=== PATIENT | female | born 1955 | race Caucasian/White ===

== ENCOUNTER 2016-11-29 08:52 | Day surgery (SDC) | payer OTHER ==
[~2016-11-29] VITALS: Ht 165.1 cm; Wt 70.0 kg
[~2016-11-29 08:52] MED LIST: 0.9% Sodium Chloride 1,000 ML IV SCH; ASPI-973 PO; CHOL10008 PO; LISI-571 PO; METF500T4 PO; PRAV40TA PO; SLO64 PO; Sodium Chloride LOK Flush 10 mL Syringe IV PRN; fentaNYL-PF 50 mCg/mL 2 mL Inj IVPUSH PRN
[2016-11-29 09:23] VITALS: BP 123/76; PULSE 76; RESP 16; O2SAT 97
[2016-11-29 10:09] VITALS: BP 113/63; PULSE 65; RESP 14; O2SAT 97
[2016-11-29 10:20] VITALS: BP 100/58; PULSE 66; RESP 14; O2SAT 100
[2016-11-29 10:24] VITALS: BP 115/67; PULSE 68; RESP 14; O2SAT 96
--- NOTE | 2016-11-29 14:13 | ENDO ---
[address] [address] ENDOSCOPY PROCEDURE PATIENT: DANIKA YOUNG : 1955 MR#: [id number] ADMIT: 11/29/2016 JOB ID: [id number] DATE: 11/29/2016 PROCEDURE: Colonoscopy. PREOPERATIVE DIAGNOSIS(ES): Colorectal cancer screening. POSTOPERATIVE DIAGNOSIS(ES): Normal colonoscopy. ANESTHESIA: 1. Fentanyl 100 mcg. 2. Versed 5 mg IV administered. COMPLICATIONS: None. BLOOD LOSS: Minimal. DESCRIPTION OF PROCEDURE: After risks and benefits were explained to the patient, informed consent was obtained. After anesthesia administered, colonoscope was then inserted from the rectum to the cecum. Mucosa carefully examined. Prep of the patient was excellent. After procedure was done, the scope withdrawn and procedure terminated. FINDINGS: Upon inspection of the anus, no masses, hemorrhoids, ulcers, or fissures that were seen. Throughout the entire examination, there were no polyps, masses or lesions. Retroflexion was normal. IMPRESSION: Normal colonoscopy. RECOMMENDATION: Repeat colonoscopy 10 years for colorectal cancer screening.
== END 2016-11-29 23:59 | disposition home or self-care (01) ==
LOC: END 08:52
PROVIDERS: ATTEND Internal Medicine Gastroenterology
DX: Z12.11 Encounter for screening for malignant neoplasm of colon (principal); I10 Essential (primary) hypertension; E11.9 Type 2 diabetes mellitus without complications; Z79.82 Long term (current) use of aspirin; Z79.84 Long term (current) use of oral hypoglycemic drugs; Z87.891 Personal history of nicotine dependence
CPT/HCPCS: G0121; G0500; J7030